=== PATIENT | male | born 1945 | race Caucasian/White ===

== ENCOUNTER 2024-11-12 06:32 | Day surgery (SDC) | payer OTHER, BC ==
[2024-11-08 14:24] VITALS: BMI 23.5
[2024-11-12] MEDS ORDERED: LIDOCAINE 1%/EPI 1:100000 (20 ML MULTI DOSE VIAL) ONE (07:20)
[2024-11-12] MEDS ORDERED: ceFAZolin SODIUM 1 GM VIAL ONE (07:20)
[2024-11-12] MEDS ORDERED: ERYTHROMYCIN 0.5% OPHTHALMIC OINTMENT 3.5 GM TUBE ONE (07:20)
[2024-11-12] MEDS ORDERED: BUPIVACAINE HCL/PF 0.5% (5MG/ML) 10 ML VIAL ONE (07:20)
[2024-11-12] MEDS ORDERED: POVIDONE-IODINE 5% OPHTHALMIC PREP 30 ML SOLUTION ONE (07:20)
[2024-11-12] MEDS ORDERED: TETRACAINE 0.5% OPHTH SOLN 2 ML BOTTLE ONE (07:20)
[2024-11-12] MEDS ORDERED: oxyCODONE HCL 5 MG TABLET PO PRN (07:34)
[2024-11-12] MEDS ORDERED: ACETAMINOPHEN 1000 MG/100 ML BAG IVPB ONE (07:34)
[2024-11-12] MEDS ORDERED: ETOMIDATE 20 MG/10 ML VIAL IVPUSH ONE (07:39)
[2024-11-12] MEDS ORDERED: MIDAZOLAM HCL 2 MG/2 ML SINGLE DOSE VIAL ONE (07:40)
[2024-11-12] MEDS ORDERED: PROPOFOL 20 ML ONE ×2 (07:40→08:22)
[2024-11-12] MEDS ORDERED: PHENYLEPHRINE HCL 10 MG/1 ML SINGLE DOSE VIAL ONE ×2 (09:12→09:13)
[2024-11-12] MEDS ORDERED: ACETAMINOPHEN INJECTION 100 ML ONE (09:44)
[2024-11-12 10:43] VITALS: RESP 18; TEMP 97.6
[2024-11-12 11:24] VITALS: BP 132/70; PULSE 72
== END 2024-11-12 11:20 | disposition home or self-care (01) ==
LOC: FASU 06:32
PROVIDERS: ATTEND Ophthalmology
PROC: 08SR0ZZ Reposition Left Lower Eyelid, Open Approach (ICD-10-PCS; principal; 2024-11-12 08:34)
DX: H02.115 Cicatricial ectropion of left lower eyelid (principal)
CPT/HCPCS: 82962; 94760; J0131